=== PATIENT | female | born 1990 | race Caucasian/White ===

== ENCOUNTER 2018-10-25 09:58 | Inpatient (IN) | payer OTHER ==
[~2018-10-25] VITALS: Ht 172.7 cm; Wt 97.7 kg
[2018-10-26] VITALS (39 sets, daily range): BP systolic 110–147; BP diastolic 53–90; PULSE 74–131; TEMP 97.4–99
[2018-10-26] MEDS ORDERED: PRENATAL VITAMI1 T12 PO (06:25)
[2018-10-26 09:42] LABS: BASO # 0.1 (0.0-0.2); BASO % 0.4 % (0.0-2.0); EOS # 0.2 (0.0-0.7); EOS % 1.4 % (0-4.0); GRAN # 9.8 (1.4-6.5); GRAN % 66.4 % (42.2-75.2); HEMOGLOBIN 10.9 g/dl (12.5-16.0); LYMPH # 3.4 (1.2-3.4); LYMPH % 23.2 % (20.0-51.0); MEAN CELL VOLUME 86 fl (80.0-100.0); MEAN CORPUSCULAR HEMOGLOBIN 28 pg (27.0-31.0); MEAN CORPUSCULAR HGB CONC 33 g/dl (33.0-37.0); MEAN PLATELET VOLUME 11.9 fl (7.4-10.4); MONO # 1.1 (0.1-0.6); MONO % 7.7 % (1.7-9.3); PLATELET COUNT 291 K/mm3 (130-400); RED BLOOD COUNT 3.87 M/mm3 (4.10-5.30); REDCELL DISTRIBUTION WIDTH-CV 13.2 % (11.5-14.5)
[2018-10-26 09:43] LABS: HEMATOCRIT 33.3 % (37.0-47.0)
[2018-10-26] MEDS ORDERED: MOTRIN 800800 MG/TAB PO (16:30)
[2018-10-26] MEDS ORDERED: PERCOCET 325 MG1 TA2 PO (16:30)
[2018-10-27] VITALS: BP 110/72; PULSE 68; TEMP 98.6
[2018-10-27 09:35] VITALS: BP 117/72; PULSE 91; TEMP 97.6
[2018-10-27 16:00] VITALS: BP 117/72; PULSE 91; TEMP 98.3
[2018-10-27 20:20] VITALS: BP 133/75; PULSE 92; TEMP 98.2
[2018-10-28 09:25] VITALS: BP 130/65; PULSE 78; TEMP 97.4
== END 2018-10-28 13:14 | disposition home or self-care (01) | DRG 807 ==
LOC: OB 10-26 06:51 → LDR 10-26 06:51 → OB 10-26 18:31
PROVIDERS: Obstetrics & Gynecology
PROC: 10E0XZZ Delivery of Products of Conception, External Approach (ICD-10-PCS; principal; 2018-10-26)
PROC: 0KQM0ZZ Repair Perineum Muscle, Open Approach (ICD-10-PCS; 2018-10-26)
PROC: 3E033VJ Introduction of Other Hormone into Peripheral Vein, Percutaneous Approach (ICD-10-PCS; 2018-10-26)
PROC: 10907ZC Drainage of Amniotic Fluid, Therapeutic from Products of Conception, Via Natural or Artificial Opening (ICD-10-PCS; 2018-10-26)
DX: O70.1 Second degree perineal laceration during delivery (principal); Z37.0 Single live birth; Z3A.39 39 weeks gestation of pregnancy; O76 Abnormality in fetal heart rate and rhythm complicating labor and delivery; O77.0 Labor and delivery complicated by meconium in amniotic fluid
CPT/HCPCS: J2590; J7120

== ENCOUNTER 2020-03-27 21:15 | Inpatient (IN) | payer BC ==
[2020-03-27] VITALS (9 sets, daily range): BP systolic 94–142; BP diastolic 45–78; PULSE 114–131; TEMP 98.8–101.7
[~2020-03-27] VITALS: Ht 172.7 cm; Wt 100.9 kg
[~2020-03-27 21:15] MED LIST: MOTRIN 800800 MG/TAB PO; PERCOCET 325 MG1 TA2 PO; PRENATAL VITAMI1 T12 PO
--- NOTE | 2020-03-27 21:15 | NUR ---
2114- PT PRESENTS TO LDR COMPLAINING OF CONTRACTIONS, TO LR5 PER WHEELCHAIR, CHANGED INTO GOWN 2117- COVID SCREENING AND BLOOD PRESSURE, EFM X2 APPLIED. PT DENIES LEAKING FLUID OR VAGINAL BLEEDING. STATES SHE HAS BEEN FEELING BABY MOVE NORMALLY AND HAS BEEN SAI MOST OF THE EVENING. 2124- SVE BY THIS NURSE, , PT IS UNCOMFORTABLE AND ASKING ABOUT EPIDURAL. BLOOD PRESSURE RECHECK IS BETTER. 2133- DR LEW CALLED AND UPDATED ON PT HISTORY, PRESENTING COMPLAINT, VITAL SIGNS, EFM STRIP WITH TACHYCARDIA, AND MATERNAL TACHYCARDIA, SVE, AND PT DISCOMFORT. ORDER RECEIVED TO ADMIT PT AND GIVE EPIDURAL AND BOLUS 1L LR. 2139- PT UPDATED ON PLAN OF CARE. IV ATTEMPT X2 WITHOUT SUCCESS. 2149- IV SITE ATTEMPT BY SECOND NURSE WITHOUT SUCCESS. 2210- ARYA FARNSWORTH CALLED FOR EPIDURAL PLACEMENT AND POSSIBLE HELP WITH IV START. THIRD NURSE TO ATTEMPT. 221- IV SITE BY THIRD NURSE AFTER 2 ATTEMPTS. LR INFUSING ORDERED. UNABLE TO OBTAIN LAB OFF IV START, COUNCILOR CALLED TO OBTAIN. 2223- COUNCILOR HERE FOR SPECIMEN. 2225- PT COMPLAINING OF INCREASING DISCOMFORT WITH CONTRACTIONS AND INTERMITTENT PRESSURE. SVE BY THIS NURSE - 2230- PT'S BODY FEELS WARM, TEMP 99.9 AX. 2233- PT POSITIONED SITTING UP IN BED, HEART TONES DROP. PT REPOSITIONED IN LEFT LATERAL AND MONITORS ADJUSTED. 2238- HEART TONES RETURN TO BASELINE. 2242- DAJA SUPERVISOR PRODUCTION MANAGING AT BEDSIDE FOR EPIDURAL PLACEMENT. PT POSITIONED SITTING UP AND MONITORS ADJUSTED. 2248- HEART TONES DIFFICULT TO TRACE DURING EPIDURAL PLACEMENT. NURSE AT BEDSIDE ADJUSTING, SPO2 VERIFIES MATERNAL HEART TRACING ON STRIP IN 120'S AT TIMES. 2252- EPIDURAL TEST DOSE. 2256- PT POSITIONED ON RIGHT SIDE. MONITORS ADJUSTED.
[2020-03-27 22:39] LABS: HEMOGLOBIN 11.5 g/dl (12.5-16.0); MEAN CELL VOLUME 89 fl (80.0-100.0); MEAN CORPUSCULAR HEMOGLOBIN 29 pg (27.0-31.0); MEAN CORPUSCULAR HGB CONC 33 g/dl (33.0-37.0); PLATELET COUNT 218 K/mm3 (130-400); RED BLOOD COUNT 3.93 M/mm3 (4.10-5.30)
--- NOTE | 2020-03-27 23:08 | NUR ---
2308- DR LEW CALLED AND UPDATED CHARTED. ORDERS RECEIVED. 2320- TEMP 101.7 AX, SVE BY THIS NURSE - WITH BULGING BAG OF [place]. WILL UPDATE DR LEW. 2324- DR LEW HERE AT DESK AND REVIEWS STRIP. UPDATED ON CURRENT TEMP AND SVE. ANOTHER PT ON THE MONITORS IS EXPERIENCING A DECEL AND HE STATES HE WILL ADDRESS FURTHER ORDERS AFTER DEALING WITH THE OTHER PT. 2340- DR LEW GIVES VERBAL ORDERS TO START AMPICILLIN AND GENT, ORAL TYLENOL DOSE, AND TO CALL DR CORREIA INCLAZARUS OF NEED FOR C/S DELIVERY. HE IS STILL AT ANOTHER PT'S BEDSIDE. 2350- AMPICILLIN INFUSING ORDERED. 2354- SVE BY THIS NURSE -1. TEMP 102.1 AX. 2357- DR CORREIA TO BEDSIDE, DISCUSSES PLAN OF CARE. 0000- AROM OF CLEAR FLUID BY DR CORREIA, SVE -/0.
[2020-03-27 23:32] LABS: BAND 5 % (0-10); LYMPHOCYTE 10 % (20.0-51.0); NEUTROPHILS 80 % (42.0-75.2)
[2020-03-27 23:33] LABS: PLATELET ESTIMATE NORMAL (NORMAL)
[2020-03-28] VITALS (13 sets, daily range): BP systolic 88–130; BP diastolic 55–70; PULSE 93–142; TEMP 97.6–102.1
--- NOTE | 2020-03-28 00:10 | NUR ---
0010- DR CORREIA AT BEDSIDE, PT FEET UP IN STIRRUPS AND COACHED ON PUSHING. DR CORREIA SVE COMPLETE. PT BEGINS PUSHING WITH CONTRACTIONS. 0012- SPONTANEOUS VAGINAL DELIVERY OF VIABLE MALE, VIGOROUS, TO MOTHER'S ABDOMEN AND CARE OF NURSERY STAFF, CORD GASES DRAWN. 0015- SPONTANEOUS DELIVERY OF PLACENTA, EXAMINED BY DR CORREIA. REPAIR IN PROGRESS. 0025- REPAIR COMPLETE. STRAIGT CATH FOR 500ML. TEMP 100.6 AX. 0030- PERICARE COMPLETE, ICEPACK TO PERINEUM. FEET DOWN FROM FOOTPLATES AND RECOVERY STARTED.
--- NOTE | 2020-03-28 00:35 | NUR ---
0035- DR CORREIA STATES SHE WILL NOT CONTINUE ANY IV ANTIBIOTICS ON PT AND THAT SHE DOES NOT WANT THYROID LABS THAT DR LEW ORDERED EARLIER TO BE DONE.
--- NOTE | 2020-03-28 02:15 | NUR ---
0215- IV TO SALINE LOCK, EPIDURAL CATHETER REMOVED WITH BLUE TIP INTACT. PT ASSISTED TO AMBULATE TO BATHROOM. PT ABLE TO VOID 400ML WITHOUT DIFFICULTY. PT PERFORMS PERICARE, CLEAN GOWN, PAD, AND PANTIES PROVIDED. NORMAL LOCHIA DISCUSSED WELL CARE OF PERINEUM. PT TRANSFERS TO WHEELCHAIR FROM TOILET AFTER FEELING LIGHTHEADED. 0230- PT TRANSFERRED TO ROOM 216 PER WHEELCHAIR. BELONGINGS SENT WITH PT. PT ORIENTED TO ROOM AND CALL LIGHTS. PLAN OF CARE DISCUSSED AND QUESTIONS ANSWERED. PT DENIES FURTHER NEEDS AT THIS TIME.
[2020-03-28 09:28] LABS: MEAN CELL VOLUME 89 fl (80.0-100.0); MEAN CORPUSCULAR HEMOGLOBIN 30 pg (27.0-31.0); MEAN CORPUSCULAR HGB CONC 33 g/dl (33.0-37.0); MEAN PLATELET VOLUME 11.3 fl (7.4-10.4); PLATELET COUNT 266 K/mm3 (130-400); RED BLOOD COUNT 3.71 M/mm3 (4.10-5.30); REDCELL DISTRIBUTION WIDTH-CV 13.2 % (11.5-14.5)
[2020-03-28 09:31] LABS: HEMATOCRIT 32.9 % (37.0-47.0)
--- NOTE | 2020-03-28 09:40 | NUR ---
Dr Landa here and lab results reviewed. Will redraw CBC this afternoon at 1500, will notify physician of results.
[2020-03-28 10:03] LABS: BAND 36 % (0-10); LYMPHOCYTE 11 % (20.0-51.0); NEUTROPHILS 51 % (42.0-75.2); PLATELET ESTIMATE NORMAL (NORMAL)
[2020-03-28] MEDS ORDERED: MOTRIN 800800 MG/TAB PO (10:13)
[2020-03-28 15:12] LABS: HEMOGLOBIN 10.6 g/dl (12.5-16.0); MEAN CELL VOLUME 88 fl (80.0-100.0); MEAN CORPUSCULAR HEMOGLOBIN 30 pg (27.0-31.0); MEAN CORPUSCULAR HGB CONC 34 g/dl (33.0-37.0); PLATELET COUNT 252 K/mm3 (130-400); RED BLOOD COUNT 3.55 M/mm3 (4.10-5.30); REDCELL DISTRIBUTION WIDTH-CV 13.2 % (11.5-14.5)
[2020-03-28 15:14] LABS: HEMATOCRIT 31.3 % (37.0-47.0)
[2020-03-28 15:44] LABS: BAND 2 % (0-10); EOSINOPHIL 2 % (0-4); LYMPHOCYTE 15 % (20.0-51.0); METAMYELOCYTE 1 % (0-0); NEUTROPHILS 79 % (42.0-75.2)
[2020-03-28 15:46] LABS: PLATELET ESTIMATE NORMAL (NORMAL)
[2020-03-29 06:50] VITALS: BP 107/75; PULSE 86; TEMP 97.4
[2020-03-29 06:55] LABS: MEAN CELL VOLUME 90 fl (80.0-100.0); MEAN CORPUSCULAR HGB CONC 32 g/dl (33.0-37.0); MEAN PLATELET VOLUME 11.2 fl (7.4-10.4); PLATELET COUNT 211 K/mm3 (130-400); RED BLOOD COUNT 3.28 M/mm3 (4.10-5.30); REDCELL DISTRIBUTION WIDTH-CV 13.5 % (11.5-14.5)
[2020-03-29 07:03] LABS: HEMATOCRIT 29.6 % (37.0-47.0); HEMOGLOBIN 9.4 g/dl (12.5-16.0); MEAN CORPUSCULAR HEMOGLOBIN 29 pg (27.0-31.0)
[2020-03-29 08:09] LABS: BAND 1 % (0-10); EOSINOPHIL 2 % (0-4); LYMPHOCYTE 22 % (20.0-51.0); METAMYELOCYTE 2 % (0-0); NEUTROPHILS 68 % (42.0-75.2); PLATELET ESTIMATE NORMAL (NORMAL)
--- NOTE | 2020-03-29 10:15 | NUR ---
Rests in bed, alert. Assumed care of patient. claims consultant in room talking with patient. Denies any needs at this time.
--- NOTE | 2020-03-29 12:15 | NUR ---
Rests in bed, alert. Denies any discomfort or needs at this time.
[2020-03-29 15:28] VITALS: BP 110/64; PULSE 76; TEMP 98.2
[2020-03-29 20:08] VITALS: BP 117/65; PULSE 91; TEMP 97.7
[2020-03-30 08:00] VITALS: BP 124/68; PULSE 76; TEMP 98.2
== END 2020-03-30 11:40 | disposition home or self-care (01) | DRG 807 ==
LOC: LDR 21:15 → LDRO 21:15 → LDR 21:34 → OB 21:34
PROVIDERS: Obstetrics & Gynecology; ADMIT Obstetrics & Gynecology
PROC: 10E0XZZ Delivery of Products of Conception, External Approach (ICD-10-PCS; principal; 2020-03-28)
PROC: 0KQM0ZZ Repair Perineum Muscle, Open Approach (ICD-10-PCS; 2020-03-28)
DX: O41.1230 Chorioamnionitis, third trimester, not applicable or unspecified (principal); Z37.0 Single live birth; O70.1 Second degree perineal laceration during delivery; Z3A.49 Greater than 42 weeks gestation of pregnancy
CPT/HCPCS: J0290; J1580; J2400; J2590; J2795; J7120